=== PATIENT | female | born 1990 | race Caucasian/White ===

== ENCOUNTER 2018-10-02 05:35 | Emergency (ER) | payer MEDICAID, OTHER ==
[~2018-10-02] VITALS: Ht 167.6 cm; Wt 90.9 kg
[2018-10-02 05:37] VITALS: BP 110/61; PULSE 83; RESP 20; Ht 167.6 cm; Wt 90.9 kg
--- NOTE | 2018-10-02 06:26 | ERD ---
ER Documentation Chief Complaint Chief Complaint RT ANKLE PAIN AND SWELLING S/P MECHANICAL FALL HPI Patient is a 28 years old female presenting to the clinic for severe right ankle pain rated 10/10. Patient admits to dancing in the club when she tried to stop her friend from falling. Patient admits to grabbing her friend in an attempt to hold her when she fell. Patient reports pain was so severe that she could not stand up and is unable to walk. Patient states that slight touch and movement of her ankle causes significant pain. Patient admits to taking 1 tablet of [place] without resolution. ROS All systems reviewed and are negative except as per history of present illness. Right ankle pain. Medications Home Meds Active Scripts Hydrocodone/Acetaminophen ([place] 5-325 Tablet) 1 Each Tablet, 1 TAB PO Q6H PRN for PAIN, #7 TAB Prov:ADIA URENA 10/02/18 Allergies Allergies: Coded Allergies: Influenza Virus Vaccines (Verified Allergy, Unknown, 10/02/18) PMhx/Soc Guillain-Brayton Syndrome Medical and Surgical Hx: pt denies Medical Hx, pt denies Surgical Hx History of Surgery: No Hx Neurological Disorder: Yes Hx Miscellaneous Medical Probl: Yes (guillain-barre syndrome) Hx Alcohol Use: Yes Hx Substance Use: Yes (marijuana) Hx Tobacco Use: No Smoking Status: Never smoker FmHx Patient denies family history stating that she is adopted and does not know her parents. Physical Exam Vitals Vital Signs Date Temp Pulse Resp B/P (MAP) Pulse Ox O2 O2 Flow FiO2 Time Delivery Rate 10/02/18 100.0 83 20 110/61 97 05:37 (77) Physical Exam Const: No acute distress Head: Atraumatic Cardio: Regular rate and rhythm, no murmurs Skin: No petechiae or rashes Neur: Awake and alert Psych: Normal Mood and Affect Right Ankle Exam: +Tenderness to light palpation on anterior and posterior ankle and lateral and medial, +ecchymoses, +edema, +limited ROM due to pain. Skin intact. Normal capillary refills. +Normal neurovascular exam. Results 24 hrs Current Medications Medications Dose Sig/Barbie Start Time Status Last (Trade) Ordered Route PRN Stop Time Admin Dose Reason Admin 1 tab ONCE ONCE 10/02/18 DC 10/02/18 Acetaminophen PO 06:30 06:16 / 10/02/18 06:31 Hydrocodone Bitart ([place] (5/325)) 0.5 mg ONCE STAT 10/02/18 DC 10/02/18 Hydromorphone IM 06:48 07:04 HCl 10/02/18 06:49 (Dilaudid) Procedures/MDM Patient was given norco. Procedure note. Patient was placed onto a posterior shortleg splint. Patient was naurovascularly intact post splint. Patient was crutch trained. Decision making: Patient presents with an unstable right ankle fracture that was immobilized with intact neurovascular exam. Right ankle splint with Crutches training provided to patient. Patient was informed about outpatient orthopedic evaluation and surgery. Departure Diagnosis: Primary Impression: Ankle fracture Condition: Stable NURYS OLIVAS PA-C October 02, 2018 06:26
[2018-10-02] MEDS ORDERED: HYDROCODONE/APAP (5/325) TAB PO ONE (06:30)
[2018-10-02] MEDS ORDERED: HYDROmorphONE 0.5 MG/0.5 ML SYG IM STA (06:48)
[2018-10-02] MEDS ORDERED: HYDR-4011 PO (06:56)
--- NOTE | 2018-10-02 07:18 | EN ---
Date/Time of Note Date/Time of Note DATE: 10/02/18 TIME: 07:17 ER Progress Note 28-year-old female presents the emergency department with a closed, unstable ankle fracture. Patient is neurovascularly intact. Patient has been appropriately immobilized and referred to outpatient orthopedic surgery where I have informed her that she will require orthopedic fixation. ADIA URENA October 02, 2018 07:18
== END 2018-10-02 08:41 | disposition home or self-care (01) ==
LOC: E/R 05:35
DX: S82.64XA Nondisplaced fracture of lateral malleolus of right fibula, initial encounter for closed fracture (principal); W18.39XA Other fall on same level, initial encounter; Y92.9 Unspecified place or not applicable
CPT/HCPCS: 73610; 96372; J1170; Z7502; Z7610